=== PATIENT | female | born 1990 | race African-American/Black ===

== ENCOUNTER 2019-09-07 18:12 | Outpatient (CLI) | payer OTHER ==
[2019-09-07 19:16] LABS: APPEARANCE,URINE CLEAR; BILIRUBIN,URINE NEGATIVE (NEGATIVE); COLOR,URINE YELLOW; GLUCOSE, URINE NEGATIVE (NEGATIVE); KETONES,URINE 20 mg/dL (NEGATIVE); LEUKOCYTE ESTERASE,URINE SMALL (NEGATIVE); NITRITE,URINE NEGATIVE (NEGATIVE); PROTEIN,URINE NEGATIVE (NEGATIVE); URINE SPECIFIC GRAVITY 1.013; UROBILINOGEN,URINE NEGATIVE mg/dL (<2.0)
[2019-09-07 19:41] LABS: BACTERIA (WET MOUNT) 4+ BACTERIA SEEN; EPITHELIALS (WET MOUNT) 4+ EPITHELIALS SEEN; RBCS (WET MOUNT) 1+ RBCS SEEN; T.VAGINALIS (WET MOUNT) NO TRICHOMONAS SEEN; WBCS (WET MOUNT) 4+ WBCS SEEN; YEAST (WET MOUNT) NO YEAST SEEN
[2019-09-07 19:41] LABS: URINE AMPHETAMINES SCREEN NEGATIVE; URINE BARBITURATES SCREEN NEGATIVE; URINE BENZODIAZEPINES SCREEN NEGATIVE; URINE COCAINE SCREEN NEGATIVE; URINE MARIJUANA (THC) SCREEN NEGATIVE; URINE METHADONE SCREEN NEGATIVE; URINE PHENCYCLIDINE SCREEN NEGATIVE
[2019-09-07 21:11] LABS: CHLAM PCR NOT DETECTED (NOT DETECT)
--- NOTE | 2019-09-07 21:27 | Non Stress Test Report ---
Non Stress Test Datetime Report Generated by CPN: 09/07/2019 21:27 DEMOGRAPHIC Test Number: 1 EGA NST: 35.3 INDICATION Indication for Study (NST) Other: Ordered by provider Indication for Study (NST) Other: LC ordered by provider VITAL SIGNS Temperature - NST: 97.9 Pulse - NST: 75 RESP - NST: 18 NBPSYS NST: 108 NBPDIA NST: 59 URINE RESULTS Urine Protein, NST: Negative Urine Ketones - NST: Positive Urine Glucose - NST: Negative Urine Blood - NST: Negative MONITORING Monitor Explained: Monitor Explained; Test Explained; Patient Verbalized Understanding Monitor Explained: Monitor Explained; Test Explained; Patient Verbalized Understanding Time on Monitor: 09/07/2019 18:42 Time on Monitor: 09/07/2019 18:45 Time off Monitor: 09/07/2019 20:43 NST Duration: 121 NST INTERVENTIONS NST Interventions: PO Hydration NST Interventions: PO Hydration Physician Notified NST: Dr. Douglas BABY A: [id number] BABY A Movement : Present Contraction Frequency : Occasional Contraction Frequency : 0 FHR Baseline : 135 Accelerations : 15X15 Decelerations : None Variability : Moderate 6-25bpm Variability : Moderate 6-25bpm NST Review: Meets Criteria for Reactive NST NST Review and Verified By : Daphne Gómez RN NST Results: Reactive NST REPORT Report Trigger: Send Report
== END 2019-09-07 21:14 | disposition home or self-care (01) ==
LOC: LC 18:12
PROVIDERS: ATTEND Student in an Organized Health Care Education/Training Program
PROC: 4A1HXCZ Monitoring of Products of Conception, Cardiac Rate, External Approach (ICD-10-PCS; principal; 2019-09-07)
DX: O47.03 False labor before 37 completed weeks of gestation, third trimester (principal); Z3A.35 35 weeks gestation of pregnancy
CPT/HCPCS: 80307; 81001; 84112; 87210; 87491; 87591

== ENCOUNTER 2019-10-05 22:25 | Inpatient (IN) | payer OTHER ==
[2019-10-05 23:04] LABS: APPEARANCE,URINE CLEAR; BILIRUBIN,URINE NEGATIVE (NEGATIVE); COLOR,URINE YELLOW; GLUCOSE, URINE NEGATIVE (NEGATIVE); KETONES,URINE NEGATIVE (NEGATIVE); LEUKOCYTE ESTERASE,URINE NEGATIVE (NEGATIVE); NITRITE,URINE NEGATIVE (NEGATIVE); PROTEIN,URINE NEGATIVE (NEGATIVE); URINE SPECIFIC GRAVITY 1.018; UROBILINOGEN,URINE NEGATIVE mg/dL (<2.0)
--- NOTE | 2019-10-05 23:18 | Admission Physical ---
Datetime Report Generated by CPN: 10/05/2019 23:17 CURRENT ADMISSION Chief Complaint: Suspected Ruptured Membranes Indication for Induction: Not Applicable Admit Impression : Term, Intrauterine Admit Plan: Admit to Unit ALLERGIES Medication Allergies: Yes Medication Allergies: magnesium sulfate (09/07/2019); magnesium sulfate (09/07/2019) Latex: No Latex Allergies OBSTETRICAL HISTORY EDC: 10/09/2019 00:00 : 3 Para: 0 Term: 0 : 0 SAB: 2 IAB: 0 Ectopic: 0 Livin Cesareans: 0 VBACs: 0 Multiple Births: 0 Gestational Diabetes: No Rh Sensitization: No Incompetent Cervix: No ALVIN: No Infertility: No ART Treatment: No Uterine Anomaly: No IUGR: No Hx Previous C/S: No Macrosomia: No Hx Loss/Stillborn: No PIH: No Hx : No Placenta Previa/Abruption: No Depression/PP Depression: No PTL/PROM: No Post Hemorrhage: No Current Procedures: Ultrasound; NST SEE RECORDS Alcohol: No Marijuana : No Cocaine: No Other Illicit Drugs: No Cigarettes: Former Smoker. [id number] MEDICAL HISTORY Diabetes: No Blood Transfusion: No Pulmonary Disease (Asthma, TB): No Breast Disease: No Hypertension: No Foreign Policy Officer Surgery: No Heart Disease: No Hosp/Surgery: No Autoimmune Disorder: No Anesthetic Complications: No Kidney Disease: No Abnormal Pap Smear: Yes Neuro/Epilepsy: No Psychiatric Disorders: No Other Medical Diseases: No Hepatitis/Liver Disease: No Significant Family History: No Varicosities/Phlebitis: No Trauma/Violence : No Thyroid Dysfunction: No INFECTIOUS HISTORY Gonorrhea: No Genital Herpes: No Chlamydia: No Tuberculosis: No Syphilis: No Hepatitis: No HIV/AIDS Exposure: No Rash or Viral Illness: No HPV: No PHYSICAL EXAM General: Normal HEENT: Normal Neurologic: Normal Thyroid: Normal Heart: Normal Lungs: Normal Breast: Deferred Back: Normal Abdomen: Normal Genitourinary Exam: Normal Extremities: Normal DTRs: Normal Pelvic Type: Adequate FETUS A EGA: 39.3 PLANS FOR LABOR AND DELIVERY Labor and Delivery: Placenta Request Pain Management: Medications; Epidural Feeding Preference: Both Benefit of Breast Feed Discussed: Yes Circumcision: Yes INFORMED CONSENT Signature: with User ID: [email or web address]
[2019-10-05 23:42] LABS: URINE AMPHETAMINES SCREEN NEGATIVE; URINE BARBITURATES SCREEN NEGATIVE; URINE BENZODIAZEPINES SCREEN NEGATIVE; URINE COCAINE SCREEN NEGATIVE; URINE MARIJUANA (THC) SCREEN NEGATIVE; URINE METHADONE SCREEN NEGATIVE; URINE PHENCYCLIDINE SCREEN NEGATIVE
[2019-10-06 00:29] LABS: ABSOLUTE LYMPHOCYTES (AUTO) 2.7 10^3/uL (0.5-4.7); ABSOLUTE MONOCYTES (AUTO) 0.7 10^3/uL (0.1-1.4); ABSOLUTE NEUT (AUTO) 8.6 10^3/uL (1.7-8.2); BASOPHILS % (AUTO) 0.3 % (0-2); EOSINOPHILS % (AUTO) 0.3 % (0-6); HEMATOCRIT 40.6 % (36.0-47.0); HEMOGLOBIN 13.7 g/dL (12.0-15.5); LYMPHOCYTES % (AUTO) 22.5 % (13-45); MEAN CORPUSCULAR HEMOGLOBIN 30.3 pg (27.0-33.4); MEAN CORPUSCULAR HGB CONC 33.8 g/dL (32.0-36.0); MEAN CORPUSCULAR VOLUME 90 fl (80-97); MONOCYTES % (AUTO) 5.4 % (3-13); PLATELET COUNT 269 10^3/uL (150-450); RED BLOOD COUNT 4.52 10^6/uL (3.72-5.28); RED CELL DISTRIBUTION WIDTH 13.5 % (11.5-14.0); SEGMENTED NEUTROPHILS % (AUTO) 71.5 % (42-78); TOTAL CELLS COUNTED % (AUTO) 100 %
[2019-10-06] MEDS ORDERED: EPHEDRINE SULFATE INJ 50 MG/1 ML AMPULE ONE (01:42)
[2019-10-06] MEDS ORDERED: MISOPROSTOL 0.2 MG TABLET ONE (01:42)
[2019-10-06] MEDS ORDERED: OXYTOCIN 10 UNIT/ML VIAL ONE (01:42)
[2019-10-06] MEDS ORDERED: OXYTOCIN/NORMAL SALINE 20 UNIT/1,000 ML RTUINJ ONE (01:43)
[2019-10-06] MEDS ORDERED: FENTANYL/BUPIVACAINE/NS/PF 300 MCG/150 ML RTUINJ EPI ONE (01:43)
[2019-10-06] MEDS ORDERED: BUPIVACAINE HCL 0.25 % INJ/PF (2.5 MG/1 ML) 30 ML VIAL ONE (01:43)
[2019-10-06] MEDS ORDERED: LIDOCAINE 1% INJ-PF (10 MG/ML) 30 ML SDV ONE (01:43)
[2019-10-06] MEDS: RINGERS SOLUTION,LACTATED 1,000 ML IV PRN ×2 (02:00→04:05)
[2019-10-06] MEDS ORDERED: MAGNESIUM HYDROXIDE SUSP 30 ML UDCUP PO PRN (06:14)
[2019-10-06] MEDS ORDERED: ACETAMINOPHEN 650 MG SUPP.RECT PR PRN (06:14)
[2019-10-06] MEDS ORDERED: ACETAMINOPHEN WITH CODEINE #3 TABLET PO PRN (06:14)
[2019-10-06] MEDS ORDERED: NA PHOS,M-B/NA PHOS,DI-BA (ADULT) 133 ML ENEMA PR PRN (06:14)
[2019-10-06] MEDS ORDERED: PROMETHAZINE HCL 25 MG TABLET PO PRN (06:14)
[2019-10-06] MEDS ORDERED: DIPHENHYDRAMINE HCL 25 MG CAPSULE PO PRN (06:14)
[2019-10-06] MEDS ORDERED: GLYCERIN/WITCH HAZEL LEAF 1 EACH MED..WIPE TP PRN (06:14)
[2019-10-06] MEDS ORDERED: ZOLPIDEM TARTRATE 5 MG TABLET PO PRN (06:14)
[2019-10-06] MEDS ORDERED: PROMETHAZINE HCL 25 MG SUPP.RECT PR PRN (06:14)
[2019-10-06] MEDS ORDERED: PROMETHAZINE HCL INJ 25 MG/1 ML VIAL IV PRN (06:14)
[2019-10-06] MEDS ORDERED: MEASLES,MUMPS&RUBELLA VACC/PF 0.5 ML VIAL SUBCUT PRN (06:14)
[2019-10-06] MEDS ORDERED: BENZOCAINE/MENTHOL AEROSOL SPRAY 56 ML TOP PRN (06:14)
[2019-10-06] MEDS ORDERED: OXYTOCIN/NORMAL SALINE 20 UNIT/1,000 ML RTUINJ IV PRN (06:14)
[2019-10-06] MEDS ORDERED: DIBUCAINE 1% OINTMENT 28 GM TP PRN (06:14)
[2019-10-06] MEDS ORDERED: DIPH/PERTUSS(ACELL)/TETANUS VAC/PF 0.5 ML SYR (>=10YO) IM PRN (06:14)
[2019-10-06] MEDS ORDERED: PSEUDOEPHEDRINE HCL 30 MG TABLET PO PRN (06:14)
[2019-10-06] MEDS: PRENATAL VITAMIN W DHA CAPSULE PO SCH (10:32)
[2019-10-06] MEDS: SENNOSIDES/DOCUSATE 8.6-50 MG 1 EACH TABLET PO SCH (10:32)
[2019-10-06] MEDS: FERROUS SULFATE 325 MG TABLET PO SCH ×2 (10:32→17:11)
[2019-10-06] MEDS: FAMOTIDINE 20 MG TABLET PO SCH ×2 (10:32→22:35)
[2019-10-06] MEDS: DOCUSATE SODIUM 100 MG CAPSULE PO SCH ×2 (11:08→17:11)
[2019-10-06] MEDS: IBUPROFEN 800 MG TABLET PO SCH ×2 (13:50→22:35)
[2019-10-06] MEDS ORDERED: ACETAMINOPHEN 325 MG TABLET PO PRN (18:05)
[2019-10-06] MEDS ORDERED: ACETAMINOPHEN 325 MG TABLET ONE (18:16)
[2019-10-07] MEDS: IBUPROFEN 800 MG TABLET PO SCH ×3 (06:26→22:20)
[2019-10-07 07:20] LABS: HEMATOCRIT 35.9 % (36.0-47.0); HEMOGLOBIN 12.2 g/dL (12.0-15.5); MEAN CORPUSCULAR HEMOGLOBIN 30.6 pg (27.0-33.4); MEAN CORPUSCULAR HGB CONC 34.1 g/dL (32.0-36.0); MEAN CORPUSCULAR VOLUME 90 fl (80-97); PLATELET COUNT 254 10^3/uL (150-450); RED CELL DISTRIBUTION WIDTH 13.4 % (11.5-14.0); WHITE BLOOD COUNT 10.4 10^3/uL (4.0-10.5)
[2019-10-07] MEDS: DOCUSATE SODIUM 100 MG CAPSULE PO SCH ×2 (10:34→18:37)
[2019-10-07] MEDS: FERROUS SULFATE 325 MG TABLET PO SCH ×2 (10:34→18:37)
[2019-10-07] MEDS: PRENATAL VITAMIN W DHA CAPSULE PO SCH (10:34)
[2019-10-07] MEDS: FAMOTIDINE 20 MG TABLET PO SCH ×2 (10:34→22:26)
[2019-10-07] MEDS: SENNOSIDES/DOCUSATE 8.6-50 MG 1 EACH TABLET PO SCH (10:34)
--- NOTE | 2019-10-07 10:55 | PDOC PROGRESS REPORT ---
Subjective-OB Progress Note for:: 10/07/19 Subjective: Pt doing well, no concerns. She denies heavy bleeding, reports voiding without difficulty and a reg diet. Physical Exam (OB) Vital Signs: Temp Pulse Resp BP Pulse Ox 97.9 F 59 L 18 122/72 99 10/07/19 07:17 10/07/19 07:17 10/07/19 07:17 10/07/19 07:17 10/07/19 07:17 Intake & Output 10/06/19 10/07/19 10/08/19 06:59 06:59 06:59 Intake Total 260 3100 Balance 260 3100 Weight 108.6 kg - Lochia Lochia Amount: Small 10-25 ml Lochia Color: Rubra/Red - Abdomen Description: Soft Hernia Present: No Fundal Description: Firm Fundal Height: u/u - u/2 Objective-Diagnostic Laboratory: 10/07/19 06:44 10/07/19 06:44 WBC 10.4 RBC 4.00 Hgb 12.2 Hct 35.9 L MCV 90 MCH 30.6 MCHC 34.1 RDW 13.4 Plt Count 254 Assessment and Plan(PN) - Assessment and Plan (1) (spontaneous vaginal delivery) Is this a current diagnosis for this admission?: Yes - Time Spent with Patient Time with patient: Less than 15 minutes Medications reviewed and adjusted accordingly: Yes - Disposition Anticipated Discharge: Home Within: within 24 hours
[2019-10-08] MEDS: IBUPROFEN 800 MG TABLET PO SCH ×2 (05:19→13:06)
[2019-10-08] MEDS: FERROUS SULFATE 325 MG TABLET PO SCH (09:28)
[2019-10-08] MEDS: DOCUSATE SODIUM 100 MG CAPSULE PO SCH (09:29)
[2019-10-08] MEDS: PRENATAL VITAMIN W DHA CAPSULE PO SCH (09:29)
[2019-10-08] MEDS: FAMOTIDINE 20 MG TABLET PO SCH (09:29)
[2019-10-08] MEDS: SENNOSIDES/DOCUSATE 8.6-50 MG 1 EACH TABLET PO SCH (09:29)
--- NOTE | 2019-10-08 14:26 | PDOC DISCHARGE SUMMARY ---
Impression - Admit/DC Date/PCP Admission Date/Primary Care Provider: 10/05/19 23:49 MIRA HAIRSTON MD Discharge Date: 10/08/19 - Discharge Diagnosis (1) (spontaneous vaginal delivery) Is this a current diagnosis for this admission?: Yes - Additional Information Discharge Diet: Regular Discharge Activity: Balance Activity w/Rest, Pelvic Rest Referrals: [facility] [Provider Group] (Please call and schedule four week follow up appointment.) Prescriptions: Ibuprofen [Motrin 800 mg Tablet] 800 mg PO Q8HP PRN #60 tablet PRN Reason: Home Medications: Pedi Mv No.79/Ferrous Fumarate [Flintstones with Iron Tab Chew] 18 mg PO DAILY 09/07/19 Ibuprofen [Motrin 800 mg Tablet] 800 mg PO Q8HP PRN #60 tablet 10/08/19 HPI Gestational Age: 39+3 Procedures: NST Intrapartum Procedure(s): Spontaneous Vaginal Delivery Results Laboratory Results: WBC 10.4 10^3/uL (4.0-10.5) 10/07/19 06:44 RBC 4.00 10^6/uL (3.72-5.28) 10/07/19 06:44 Hgb 12.2 g/dL (12.0-15.5) 10/07/19 06:44 Hct 35.9 % (36.0-47.0) L 10/07/19 06:44 MCV 90 fl (80-97) 10/07/19 06:44 MCH 30.6 pg (27.0-33.4) 10/07/19 06:44 MCHC 34.1 g/dL (32.0-36.0) 10/07/19 06:44 RDW 13.4 % (11.5-14.0) 10/07/19 06:44 Plt Count 254 10^3/uL (150-450) 10/07/19 06:44 Lymph % (Auto) 22.5 % (13-45) 10/06/19 00:09 [place] % (Auto) 5.4 % (3-13) 10/06/19 00:09 Eos % (Auto) 0.3 % (0-6) 10/06/19 00:09 Baso % (Auto) 0.3 % (0-2) 10/06/19 00:09 Absolute Neuts (auto) 8.6 10^3/uL (1.7-8.2) H 10/06/19 00:09 Absolute Lymphs (auto) 2.7 10^3/uL (0.5-4.7) 10/06/19 00:09 Absolute Monos (auto) 0.7 10^3/uL (0.1-1.4) 10/06/19 00:09 Absolute Eos (auto) 0.0 10^3/uL (0.0-0.6) 10/06/19 00:09 Absolute Basos (auto) 0.0 10^3/uL (0.0-0.2) 10/06/19 00:09 Seg Neutrophils % 71.5 % (42-78) 10/06/19 00:09 Urine Color YELLOW 10/05/19 22:46 Urine Appearance CLEAR 10/05/19 22:46 Urine pH 7.0 (5.0-9.0) 10/05/19 22:46 Ur Specific [place] 1.018 10/05/19 22:46 Urine Protein NEGATIVE mg/dL (NEGATIVE) 10/05/19 22:46 Urine Glucose (UA) NEGATIVE mg/dL (NEGATIVE) 10/05/19 22:46 Urine Ketones NEGATIVE mg/dL (NEGATIVE) 10/05/19 22:46 Urine Blood MODERATE (NEGATIVE) H 10/05/19 22:46 Urine Nitrite NEGATIVE (NEGATIVE) 10/05/19 22:46 Urine Bilirubin NEGATIVE (NEGATIVE) 10/05/19 22:46 Urine Urobilinogen NEGATIVE mg/dL (<2.0) 10/05/19 22:46 Ur Leukocyte Esterase NEGATIVE (NEGATIVE) 10/05/19 22:46 Urine Ascorbic Acid NEGATIVE (NEGATIVE) 10/05/19 22:46 Membranes Rupture POSITIVE (NEGATIVE) H 10/05/19 22:48 Urine Opiates Screen NEGATIVE 10/05/19 22:46 Urine Methadone Screen NEGATIVE 10/05/19 22:46 Ur Barbiturates Screen NEGATIVE 10/05/19 22:46 Ur Phencyclidine Scrn NEGATIVE 10/05/19 22:46 Ur Amphetamines Screen NEGATIVE 10/05/19 22:46 U Benzodiazepines Scrn NEGATIVE 10/05/19 22:46 Urine Cocaine Screen NEGATIVE 10/05/19 22:46 U Marijuana (THC) Screen NEGATIVE 10/05/19 22:46 RPR NONREACTIVE (NONREACTIVE) 10/06/19 00:09 Blood Type O POSITIVE 10/06/19 00:09 Antibody Screen NEGATIVE 10/06/19 00:09 Plan Plan of Treatment: follow up in 4 weeks at [facility] for post check
[2019-10-08 14:43] VITALS: BP 112/60
--- NOTE | 2019-10-11 14:45 | Delivery Summary ---
Del Sum A-C Datetime Report Generated by CPN: 10/11/2019 14:45 DELIVERY PERSONNEL DELIVERY PERSONNEL: [id number] Delivery Doctor:: Agustin Joya MD Labor and Delivery Nurse:: Tania Lugo RNbread jockey Nurse:: Asuncion Markham, RN Manager Commercial [employer]/DUST COLLECTOR OPERATOR: Libby Pena, DOT ETCHER MATERNAL INFORMATION Delivery Anesthesia: Epidural Medications After Delivery: Pitocin Drip 20 Units/1000ml NSS Delivery QBL: 219 Maternal Complications: None LABOR SUMMARY EDC: 10/09/2019 00:00 No. Babies in Womb: 1 Attempted: No Labor Anesthesia: Epidural LABOR INFORMATION Reason for Induction: Not Applicable Onset of Labor: 10/05/2019 22:00 Complete Dilatation: 10/06/2019 05:39 Oxytocin: N/A Group B Beta Strep: negative (Annotations: Data stored by [facility] on behalf of user) Steroids Given: None Reason Steroids Not Administered: Not Applicable MEMBRANES Membranes Rupture Method: Spontaneous Rupture of Membranes: 10/05/2019 22:00 Length of Rupture (hr): 8.12 Amniotic Fluid Color: Clear Amniotic Fluid Amount: Small Amniotic Fluid Odor: Normal STAGES OF LABOR Stage 1 hr: 7 Stage 1 min: 39 Stage 2 hr: 0 Stage 2 min: 28 Stage 3 hr: 0 Stage 3 min: 2 Total Time in Labor hr: 8 Total Time in Labor min: 9 VAGINAL DELIVERY Episiotomy: None Laceration #1: None Laceration Extension #1: N/A Sponge Count Correct: N/A Sharps Count Correct: N/A CSECTION DELIVERY Primary Indication: N/A Secondary Indication: N/A CSection Incidence: N/A Labor: N/A Elective: N/A CSection Incision: N/A BABY A INFORMATION Delivery Date/Time: 10/06/2019 06:07 Method of Delivery: Vaginal Method of Delivery: Vaginal Nurse Controlled Delivery: No Born in Route : No : N/A Forceps: N/A Vacuum Extraction: N/A Shoulder Dystocia : No PRESENTATION/POSITION BABY A Presentation: Cephalic Cephalic Presentation: Vertex Vertex Position: Left Occipital Anterior Breech Presentation: N/A PLACENTA INFORMATION BABY A Placenta Delivery Time : 10/06/2019 06:09 Placenta Method of Delivery: Spontaneous Placenta Method of Delivery: Spontaneous Placenta Status: Delivered SCORES BABY A Heart Rate 1 min: >100 bpm Resp Effort 1 min: Good Cry Reflex Irritability 1 min: Cough or Sneeze or Pulls Away Muscle Tone 1 min: Active Motion Color 1 min: Blue/Pale Resuscitation Effort 1 min: Tactile Stimulation SCORE 1 MIN: 8 Heart Rate 5 min: >100 bpm Resp Effort 5 min: Good Cry Reflex Irritability 5 min: Cough or Sneeze or Pulls Away Muscle Tone 5 min: Active Motion Color 5 min: Body [place], Extremities Blue Resuscitation Effort 5 min: Tactile Stimulation SCORE 5 MIN: 9 INFANT INFORMATION BABY A Gestational Age at Delivery: 39.4 Gestational Status: Full Term- 39- 40.6 Weeks Outcome : Liveborn Infant Condition : Stable Infant Sex: Male Infant Sex: Male IDENTIFICATION BABY A Verification Date/Time: 10/06/2019 06:48 ID Band Number: [id number] Mother's Name Verified: Yes RN Verifying Infant: rn yeniann and rn ring WEIGHT/LENGTH BABY A Infant Birthweight (gm): 2695 Weight (lb): 5 Weight (oz): 15 Infant Length (in): 20.00 Length (cm): 50.80 CORD INFORMATION BABY A No. Cord Vessels: 3 Nuchal Cord : Around Neck x1, Loose Cord Blood Taken: Yes-For Eval (Mom's Blood Type - or O+) Suction: None ASSESSMENT BABY A Complications: Multiple Variable Decels Physical Findings at Delivery: Within Normal Limits Infant Respirations: Appears Normal Skin to Skin: Yes Skin to Skin: Yes Microstrategy Bi Developer/ALS Called : No Transferred To: Remains with Mother BABY B INFORMATION : N/A SIGNATURES Signature: with User ID: [email or web address]
== END 2019-10-08 14:52 | disposition home or self-care (01) | DRG 807 ==
LOC: LC 22:25 → LR 23:49 → 2S 10-06 10:40
PROVIDERS: ADMIT Obstetrics & Gynecology Gynecology; ATTEND Obstetrics & Gynecology Gynecology
PROC: 10E0XZZ Delivery of Products of Conception, External Approach (ICD-10-PCS; principal; 2019-10-06)
DX: O69.81X0 Labor and delivery complicated by cord around neck, without compression, not applicable or unspecified (principal); Z37.0 Single live birth; Z91.048 Other nonmedicinal substance allergy status; Z87.891 Personal history of nicotine dependence; Z3A.39 39 weeks gestation of pregnancy
CPT/HCPCS: 36415; 80307; 81005; 84112; 85025; 85027; 86592; 86850; 86900; 86901; 94760; J2590; J3010; J3490